=== PATIENT | male | born 1935 | race Caucasian/White ===

== ENCOUNTER 2020-04-30 07:04 | Inpatient (IN) | payer MEDICARE, OTHER ==
--- NOTE | 2020-04-30 07:34 | RAD ---
CHEST, ONE VIEW XR CLINICAL HISTORY: heart failure COMPARISON: None. TECHNIQUE: AP Chest. FINDINGS: Heart is normal in size. Mild aortic atherosclerosis. Normal pulmonary vascularity. Lungs appear clear. Pleural spaces are clear. No pneumothorax. Sternal wires are noted. Left chest wall triple lead AICD appears intact. IMPRESSION: 1. No acute chest disease. Electronically signed by: Leonor Corley DO 04/30/2020 7:32 AM [facility]
[2020-04-30] MEDS ORDERED: ACETAMINOPHEN 325 MG TAB PO ONE (08:03)
[2020-04-30] MEDS ORDERED: diphenhydrAMINE HCL 50 MG/ML VIAL IV ONE (08:03)
[2020-04-30] MEDS ORDERED: PANTOPRAZOLE INJECTION 80 MG in SODIUM CHLORIDE 0.9% 100ML 80 ML IVPB ONE (08:07)
[2020-04-30] MEDS ORDERED: SODIUM CHLORIDE 0.9% 500ML 500 ML IVS SCH (08:30)
[2020-04-30] MEDS ORDERED: SODIUM CHLORIDE 0.9% 250ML 250 ML ONE ×2 (09:35→11:39)
[2020-04-30] MEDS ORDERED: ONDANSETRON INJ 4 MG/2 ML VIAL IV ONE (10:04)
[2020-04-30] MEDS ORDERED: ONDANSETRON INJ 4 MG/2 ML VIAL ONE (10:05)
[2020-04-30] MEDS ORDERED: SODIUM CHLORIDE 0.9% (FLUSH) 10 ML SYG ONE (10:12)
[2020-04-30] MEDS: MORPHINE SULFATE INJ 10 MG/ML VIAL IV PRN ×4 (10:43→22:33)
--- NOTE | 2020-04-30 11:04 | ED.PDOC ---
History of Present Illness - General Chief Complaint: General Stated Complaint: weakness,diarrhea Time Seen by Provider: 04/30/20 07:14 Source: patient, RN notes reviewed, Vital Signs reviewed, EMS notes reviewed, family, EMS, old records - History of Present Illness Initial Comments: 84 yo male with hx of a-fib, chf comes in with not feeling well for the past 3 weeks. states he has been nauseated and weak. On arrival patient was unresponsive. HE did have good pulses and was breathing spontaneously. Sugar was 238 per EMS. After about 2 minutes, patient was awake and alert, GCS 15. Allergies/Adverse Reactions: Allergies NO KNOWN ALLERGY Allergy (Verified 04/30/20 08:19) Review of Systems - Review of Systems Constitutional: States: malaise, weakness. Denies: chills, fever EENTM: Denies: blurred vision, throat pain, mouth pain Respiratory: Denies: cough, short of breath Cardiology: Denies: chest pain, palpitations Gastrointestinal/Abdominal: States: nausea. Denies: abdominal pain, diarrhea, vomiting Genitourinary: Denies: dysuria, frequency Musculoskeletal: Denies: back pain, muscle pain Skin: Denies: rash Neurological: Denies: numbness, paresthesia, seizure Endocrine: Denies: unexplained weight gain, unexplained weight loss Hematologic/Lymphatic: Denies: blood clots, easy bleeding, easy bruising Past Medical History (General) - Patient Medical History Hx Seizures: No Hx Stroke: No Hx Asthma: No Hx of COPD: No Hx Congestive Heart Failure: Yes Hx Diabetes: No - Vaccination History Hx Influenza Vaccination: - unknown Hx Pneumococcal Vaccination: - unknown - Social History Hx Tobacco Use: No Family Medical History - Family History Father Family History: Unknown Living Status: Unknown Physical Exam - Physical Exam General Appearance: Alert, Comfortable, No apparent distress, Well Developed, Well Groomed, Well Hydrated, Well Nourished Eye Exam: bilateral normal Ears, Nose, Throat: hearing grossly normal, normal ENT inspection, normal pharynx Neck: non-tender, full range of motion, supple, normal inspection, carotid bruit Respiratory: chest non-tender, lungs clear, normal breath sounds, no respiratory distress, no accessory muscle use Cardiovascular/Chest: normal peripheral pulses, regular rate, rhythm, no edema, no gallop, no JVD, no murmur Peripheral Pulses: radial,right: 2+, radial,left: 2+ Gastrointestinal/Abdominal: normal bowel sounds, non tender, soft, no organomegaly, no pulsatile mass Rectal Exam: normal rectal tone, black stool Back Exam: normal inspection, no CVA tenderness, no vertebral tenderness Extremity: normal range of motion, non-tender, normal inspection, no pedal edema, no calf tenderness, normal capillary refill Neurologic: divider operator II-XII nml as tested, no motor/sensory deficits, alert, normal mood/affect, oriented x 3 Skin Exam: normal color, warm/dry Progress - Progress Progress: 04/30/20 11:54 partial ddx: GI bleed, covid, pneumonia, CHF, CAD, others considered. patient originally hypotensive, given 1 L bolus, BP increased to 118 systolic. patient has large black bm. given pantoprazole 80 mg. Patient was transfused 2 units of prbc. Zoe Orellana discussed with daughter, decided best course of action is hospice. The data reviewed when caring for this patient included: nurse notes, prior records, etc. The history and assessments from nurses notes were reviewed and considered, and the patient's home medication list was also reviewed and considered. My assessment and the results of testing completed here in the ED were discussed with the patient/family. All questions were answered, and they express understanding of my assessment and the plan. 04/30/20 07:14 UA [URINALYSIS] Stat 04/30/20 07:15 EKG STAT 04/30/20 08:03 Acetaminophen [Tylenol] 650 mg PO ONCE ONE diphenhydrAMINE HCL [Benadryl] 12.5 mg IV ONCE ONE 04/30/20 08:30 PACKED CELLS,LR Stat TYPE AND SCREEN Stat Sodium Chloride 0.9% 500Ml [NS 500ml] 500 ml IVS .KVO 04/30/20 10:36 Morphine Sulfate Inj 2 mg IV Q2H PRN Laboratory Results WBC 19.0 K/mm3 (4.8-10.8) H 04/30/20 07:14 RBC 3.18 M/mm3 (4.70-6.10) L 04/30/20 07:14 Hgb 6.8 gm/dL (14.0-18.0) L* 04/30/20 07:14 Hct 22.5 % (42.0-52.0) L 04/30/20 07:14 MCV 70.7 fl (80.0-94.0) L 04/30/20 07:14 MCH 21.3 pg (27.0-31.0) L 04/30/20 07:14 MCHC 30.1 g/dL (33.0-37.0) L 04/30/20 07:14 RDW 17.7 % (11.5-14.5) H 04/30/20 07:14 Plt Count 167 K/mm3 (130-400) 04/30/20 07:14 MPV 10.0 fl (7.40-10.4) 04/30/20 07:14 Absolute Neuts (auto) 15.00 K/uL (1.8-6.8) H 04/30/20 07:14 Absolute Lymphs (auto) 2.90 K/uL (1.0-3.4) 04/30/20 07:14 Absolute Monos (auto) 1.00 K/uL (0.2-0.8) H 04/30/20 07:14 Absolute Eos (auto) 0.00 K/uL (0.0-0.4) 04/30/20 07:14 Absolute Basos (auto) 0.10 K/uL (0.0-0.1) 04/30/20 07:14 Neutrophils % 78.9 % (42.0-78.0) H 04/30/20 07:14 Neutrophils % (Manual) 78.0 % (42.0-78.0) 04/30/20 07:14 Lymphocytes % 15.3 % (20.0-50.0) L 04/30/20 07:14 Lymphocytes % (Manual) 13.0 % 04/30/20 07:14 Monocytes % 5.2 % (2.0-9.0) 04/30/20 07:14 Monocytes % (Manual) 1.0 % 04/30/20 07:14 Eosinophils % 0.0 % (1.0-5.0) L 04/30/20 07:14 Basophils % 0.6 % (0.0-2.0) 04/30/20 07:14 Band Neutrophils 6.0 % (0-2) H 04/30/20 07:14 Metamyelocytes 2.0 % (0-0) H 04/30/20 07:14 Nucleated RBCs 1.0 % 04/30/20 07:14 Hypochromia 2+ 04/30/20 07:14 Platelet Estimate Normal (NORMAL) 04/30/20 07:14 Polychromasia 2+ 04/30/20 07:14 Poikilocytosis 3+ 04/30/20 07:14 Anisocytosis 3+ 04/30/20 07:14 Microcytosis 2+ 04/30/20 07:14 PT 11.0 SECONDS (9.0-10.9) H 04/30/20 07:31 INR 1.11 (0.9-1.15) 04/30/20 07:31 PTT (SP) 18.5 SECONDS (21.8-31.6) L 04/30/20 07:31 Sodium 138 mmol/L (135-145) 04/30/20 07:31 Potassium 4.8 mmol/L (3.6-5.0) 04/30/20 07:31 Chloride 110 mmol/L (101-111) 04/30/20 07:31 Carbon Dioxide 15 mmol/L (21-31) L 04/30/20 07:31 Anion Gap 17.8 (12-18) 04/30/20 07:31 BUN 89 mg/dL (7-18) H 04/30/20 07:31 Creatinine 1.81 mg/dL (0.6-1.3) H 04/30/20 07:31 BUN/Creatinine Ratio 49.2 (10-20) H 04/30/20 07:31 Random Glucose 250 mg/dL (70-105) H 04/30/20 07:31 Serum Osmolality 311.4 mOsm/L (275-295) H 04/30/20 07:31 Lactic Acid 3.4 mmol/L (0.5-2.2) H* 04/30/20 07:31 Calcium 7.7 mg/dL (8.4-10.2) L 04/30/20 07:31 Magnesium 2.0 mg/dL (1.8-2.5) 04/30/20 07:31 Total Bilirubin 0.9 mg/dL (0.2-1.0) 04/30/20 07:31 AST 14 IU/L (10-42) 04/30/20 07:31 ALT 12 IU/L (10-60) 04/30/20 07:31 Alkaline Phosphatase 44 IU/L (42-121) 04/30/20 07:31 Troponin I 0.02 ng/mL (0.01-0.05) 04/30/20 07:31 B-Natriuretic Peptide 35.1 pg/ml (0-100) 04/30/20 07:31 Serum Total Protein 5.5 gm/dL (6.4-8.2) L 04/30/20 07:31 Albumin 2.7 g/dl (3.2-5.5) L 04/30/20 07:31 Globulin 2.8 gm/dL (2.3-3.5) 04/30/20 07:31 Albumin/Globulin Ratio 1.0 (1.1-1.9) L 04/30/20 07:31 Lipase 26 U/L (22-51) 04/30/20 07:31 TSH 2.83 uIU/mL (0.34-5.60) 04/30/20 07:31 Patient ABO/Rh A POSITIVE 04/30/20 08:30 Antibody Screen Negative 04/30/20 08:30 Crossmatch See Detail 04/30/20 08:30 - EKG/XRAY/CT EKG: Sinus Comments: bifasciular block, no prior for comparision XRAY: chest - no acute cardiopulmonary pathology Departure - Departure Clinical Impression: GI bleed Qualifiers: GI bleed type/associated pathology: melena Qualified Code(s): K92.1 - Melena Disposition: Admit Patient Departure Forms: ED Discharge - Pt. Copy, Patient Portal Self Enrollment Decision To Admit - Decistion To Admit Decision to Admit Reason: Medical Nature Decision to Admit Date: 04/30/20 Decision to Admit Time: 08:00 - for hospice
[2020-04-30] MEDS ORDERED: MORPHINE SULFATE INJ 10 MG/ML VIAL IV PRN (14:10)
[2020-04-30] MEDS ORDERED: ONDANSETRON INJ 4 MG/2 ML VIAL IV PRN (14:11)
[2020-04-30] MEDS ORDERED: SCOPOLAMINE PATCH 1.5MG 1 EA TD SCH (14:30)
[2020-04-30] MEDS ORDERED: SODIUM CHLORIDE 0.9% (FLUSH) 10 ML SYG IV PRN (15:13)
[2020-04-30] MEDS ORDERED: IV SET AND CAP CHANGE INJ INJ SCH (15:30)
[2020-04-30] MEDS ORDERED: MORPHINE SULFATE INJ 10 MG/ML VIAL ONE ×2 (19:27→22:26)
[2020-04-30 20:56] VITALS: BP 91/66; TEMP 98.2; O2SAT 98
[2020-05-01] MEDS ORDERED: MORPHINE SULFATE INJ 10 MG/ML VIAL ONE ×3 (00:36→04:37)
[2020-05-01] MEDS: MORPHINE SULFATE INJ 10 MG/ML VIAL IV PRN ×3 (00:43→05:05)
[2020-05-03] MEDS ORDERED: REMOVE OLD PATCH TOP SCH (14:30)
--- NOTE | 2020-05-13 09:25 | SSS ---
SUPERVISING PHYSICIAN: Ayo Crane MD DATE OF ADMISSION: 04/30/20 DATE OF EXPIRATION: 05/01/20 ADMISSION DIAGNOSIS: 1. Gastrointestinal bleed with significant history of GI bleeds. 2. Recent history of unknown cancer. 3. Atrial fibrillation. 4. Congestive heart failure. 5. Coronary artery disease. DISCHARGE DIAGNOSIS: 1. . HISTORY OF PRESENT ILLNESS: This is an 84-year-old male patient who lives in [facility]. He was with his family at [place] and had not been feeling well for over 3 weeks. He has a significant history of GI bleed as well as heart problems. He had a large black bowel movement prior to coming into the hospital. Initially, he was unresponsive, but after he received some fluids, he spontaneously became more alert. Blood transfusion was ordered and the first unit of packed red blood cells was started. The ER doctor called me as he was unable to get a transfer to another facility for GI workup. The patient was a no code and the daughter expressed that the patient had requested that no aggressive interventions take place. I spoke with the daughter at length and we discussed inpatient, but the daughter expressly stated that the patient did not want anything aggressive done. His had recently. We discussed admitting under hospice and [facility] was called. The patient was admitted to the hospital under [facility]. PAST MEDICAL HISTORY: 1. Atrial fibrillation. 2. Congestive heart failure. 3. Coronary artery disease. PAST SURGICAL HISTORY: Unknown. OUTPATIENT MEDICATIONS: Per the EMR. ALLERGIES: NO KNOWN DRUG ALLERGIES. SOCIAL HISTORY: He lives in [facility]. He was recently . There is no history of smoking, ETOH or illicit drug use. REVIEW OF SYSTEMS: Unable to obtain due to the patient's status. PHYSICAL EXAMINATION: VITAL SIGNS: Temperature 97.8, heart rate 89, blood pressure 91/66, respiratory rate 24, O2 saturation 96% on 1 liter nasal cannula. GENERAL: This is an 84-year-old male who is lying in his hospital bed and is in mild respiratory distress. NECK: Supple without mass. RESPIRATORY: Diminished throughout and slightly tachypneic. CARDIOVASCULAR: Regular rate and rhythm. NEUROLOGIC: He is lethargic. He opens his eyes and answers simple yes/no questions. LABORATORY: WBCs 19,000, hemoglobin 6.8, hematocrit 22.5, 6 bands. Electrolytes were unremarkable. Creatinine 1.81, lactic acid 3.4, calcium 7.7. RADIOLOGY: Chest x-ray shows no acute chest disease. HOSPITAL COURSE: The patient was admitted to the hospital and [facility] was contacted to do inpatient hospice care. Medications were per routine hospice orders. The patient at 7:55 AM on 05/01/20. Release of body was to home per family's wishes. #[id number] MTDD
== END 2020-05-01 07:55 | disposition expired | DRG 951 ==
LOC: ER 07:04 → MS 13:32 → UNDOADMOB 13:32 → OBSVTOIN 13:32
PROVIDERS: ADMIT Nurse Practitioner Acute Care; ATTEND Nurse Practitioner Acute Care
PROC: 30233N1 Transfusion of Nonautologous Red Blood Cells into Peripheral Vein, Percutaneous Approach (ICD-10-PCS; principal; 2020-04-30)
DX: Z51.5 Encounter for palliative care (principal); K92.1 Melena; I48.91 Unspecified atrial fibrillation; I50.9 Heart failure, unspecified; I25.10 Atherosclerotic heart disease of native coronary artery without angina pectoris; Z66 Do not resuscitate; Z95.810 Presence of automatic (implantable) cardiac defibrillator